=== PATIENT | male | born 1980 | race Caucasian/White ===

== ENCOUNTER 2017-09-10 05:38 | Inpatient (IN) | payer SELFPAY ==
[~2017-09-10] VITALS: Ht 190.5 cm; Wt 74.9 kg
[2017-09-10 05:38] VITALS: BP 141/55
[~2017-09-10 05:38] MED LIST: ACYCLOVIR800 MG PO; DAYPRO600 M1 PO; GLIPIZIDE5 MG PO; HYDROCODONE BIT1 T11 PO; KEFLEX500 MG PO; MEDROL DOSEPAK4 MG PO; METFORMIN500 MG PO; NAPROSYN500 MG PO; ROBAXIN750 MG PO; VICODIN 5/500 505 MG PO; ZANTAC150 MG PO; ZITHROMAX Z PA250 MG PO; ZITHROMAX250 MG PO; ZOFRAN4 MG PO
[2017-09-10 06:28] LABS: BASO # 0.1 10*3/uL (0.0-0.1); BASO % 0.5 % (0.0-1.0); HEMATOCRIT 51.7 % (42.0-52.0); HEMOGLOBIN 17.3 g/dl (14.0-18.0); LYMPH # 1.3 10*3/uL (1.3-4.4); LYMPH % 8.8 % (27.0-41.0); MEAN CORPUSCULAR HGB 34.1 pg (27.0-31.0); MEAN CORPUSCULAR HGB CONC 33.5 g/dl (33.0-37.0); MONO # 0.9 10*3/uL (0.1-1.0); MONO % 6.2 % (3.0-9.0); NEUT # 12.6 10*3/uL (2.3-7.9); NEUT % 83.6 % (47.0-73.0); PLATELET COUNT AUTOMATED 299 10*3/uL (130-400); RED BLOOD COUNT 5.07 10*6/uL (4.50-5.90); RED CELL DISTRI WIDTH 12.2 % (0-14.5)
[2017-09-10 06:37] LABS: ACT PARTIAL THROMBO TIME 32.2 SECONDS (20.8-31.5); INTERNATIONAL NORM RATIO 0.9 (2.0-3.5)
[2017-09-10 06:56] LABS: ALKALINE PHOSPHATASE 70 U/L (45-117); BUN 12 mg/dl (7-24); CHLORIDE 94 mmol/L (98-107); CREATININE 1.31 mg/dL (0.70-1.30); LIPASE 80 U/L (73-393); MAGNESIUM 2.4 mg/dL (1.5-2.1); POTASSIUM 4.4 mmol/L (3.5-5.1); SGOT/AST 29 IU/L (3-35); SGPT/ALT 54 U/L (12-78); SODIUM 131 mmol/L (136-145); TOTAL PROTEIN 9.5 gm/dL (6.4-8.2)
[2017-09-10 06:59] LABS: ETHYL ALCOHOL < 3.0 mg/dl (<3); TROPONIN I < 0.015 ng/ml (<0.045)
--- NOTE | 2017-09-10 07:09 | NUR ---
REPORT FROM RALPH BOOTH AT THIS TIME. PATIENT CURRENTLY LAYING IN BED AT THIS TIME. APPEARS IN NO DISTRESS. WILL CONTINUE TO MONITOR. CALL LIGHT WITHIN REACH.
[2017-09-10 07:30] VITALS: BP 145/81
[2017-09-10 07:50] LABS: BILIRUBIN NEGATIVE (NEGATIVE); BLOOD 1+ (NEGATIVE); CLARITY CLEAR (CLEAR); COLOR YELLOW (YELLOW); GLUCOSE 2+ (NEGATIVE); KETONE 3+ (NEGATIVE); LEUKO ESTERASE NEGATIVE (NEGATIVE); NITRITE NEGATIVE (NEGATIVE); SPECIFIC GRAVITY 1.025 (1.005-1.030); UROBILINOGEN 0.2 E.U./dl (0.2-1.0)
[2017-09-10 07:53] LABS: URINE AMPHETAMINES < 1000 (1000ng/ml); URINE BARBITURATES < 200 (200ng/ml); URINE BENZODIAZEPINES < 200 (200ng/ml); URINE CANNABINOIDS (THC) < 50 (50ng/ml); URINE COCAINE < 300 (300ng/ml); URINE METHADONE < 300 (300ng/ml); URINE OPIATES < 300 (300ng/ml)
[2017-09-10 07:54] LABS: URINE PHENCYCLIDINE < 25 (25ng/ml)
[2017-09-10 07:58] LABS: BACTERIA TRACE; EPITHELIAL CELLS 0-2; MUCOUS 1+; WBC 0-2 wbc/hpf (0-5)
--- NOTE | 2017-09-10 08:06 | NUR ---
REPORT FROM RALPH BOOTH INDICATED TO THIS NURSE THAT PATIENT WAS TO RECEIVE 3 BAGS OF 1000ML OF NORMAL SALINE. PATIENT HAS ONE BAG IN EMAR AT THIS TIME. FIRST BAG HAS FINISHED INFUSING.
--- NOTE | 2017-09-10 08:18 | NUR ---
INSULIN STARTED AT 8 UNITS/HOUR AT THIS TIME. VERIFIFED BY LEOBARDO LOVELACE AND PHARMACY
--- NOTE | 2017-09-10 08:23 | NUR ---
BGM OBTAINED PRIOR TO START OF INSULIN. 339 AT THIS TIME
--- NOTE | 2017-09-10 08:25 | NUR ---
REPORT CALLED TO SEAN BOOTH AT THIS TIME IN [facility].
[2017-09-10 08:53] VITALS: BP 147/90
--- NOTE | 2017-09-10 08:53 | NUR ---
A 37, admitted to [facility], under the services of MARIANGEL Henry DO with a diagnosis of METABOLIC ACIDOSIS. Chief complaint is sick at home. Patient arrived via stretcher from ER. Monitor applied. Initial assessment completed. Vital signs taken and recorded. MARIANGEL HENRY DO notified of admission to the unit. Orders received. See assessment for past medical history, medications and allergies. Patient and/or family oriented to unit. [facility] visitation policy reviewed. Clothing/patient valuable form completed. CHANDU PALACIOS
[2017-09-10] MEDS ORDERED: JARDIANCE10 MG PO (09:22)
[2017-09-10] MEDS ORDERED: ADVIL200 M1 PO (09:23)
--- NOTE | 2017-09-10 10:45 | NUR ---
PT WAS MEDICATED AT 1016 WITH MORPHINE FOR BACK/ABDOMINAL DISCOMFORT. ULTRASOUND OF ABDOMEN HAS BEEN DONE AT THE BEDSIDE.
--- NOTE | 2017-09-10 11:02 | NUR ---
STATES FEELING "SOME" RELIEF FROM EARLIER MORPHINE. 3RD BAG OF WIDE OPEN SALINE ALMOST COMPLETE. THE INSULIN DRIP CONTINUES AT 8 UNITS/HR.
--- NOTE | 2017-09-10 11:49 | NUR ---
INSULIN DRIP DECREASED BY 50% TO 4 UNITS/HR FOR BSBS OF 149.
[2017-09-10 12:00] VITALS: BP 122/64
[2017-09-10 12:31] LABS: BUN 9 mg/dl (7-24); CHLORIDE 106 mmol/L (98-107); CREATININE 0.98 mg/dL (0.70-1.30); POTASSIUM 4.2 mmol/L (3.5-5.1); SODIUM 136 mmol/L (136-145)
--- NOTE | 2017-09-10 12:45 | NUR ---
DR SALVADOR UPDATED ON BMP, BS OF 116, CO2 OF 8 AND INSULIN DRIP AT 4UNITS/HR
--- NOTE | 2017-09-10 13:15 | NUR ---
INSULIN DRIP DECREASED BY 50% TO 2 UNITS/HR FOR BSBS OF 92. DILAUDID 1MG IV FOR RETURNING BACK PAIN. REMAINS NPO EXCEPT FOR ICE CHIPS.
--- NOTE | 2017-09-10 13:22 | NUR ---
DR SALVADOR NOTIFIED OF PT'S BSBS OF 92 AND THAT I HAVE TITRATED THE INSULIN DRIP BY 50% AGAIN TO 2 UNITS/HR.
--- NOTE | 2017-09-10 14:41 | NUR ---
SAYS SOTOID EFFECTIVE. HE'S HUNGRY.
--- NOTE | 2017-09-10 14:53 | NUR ---
IV FLUIDS WERE CHANGED EARLIER TO D5.45NS AT 150/HR. HE HAS BEEN SLEEPING AT LONG INTERVALS. NO DYSRHYTHMIAS OR RESPIRATORY DISTRESS.
[2017-09-10 16:00] VITALS: BP 118/65
[2017-09-10 16:45] LABS: BUN 8 mg/dl (7-24); CHLORIDE 107 mmol/L (98-107); CREATININE 1.03 mg/dL (0.70-1.30); POTASSIUM 4.4 mmol/L (3.5-5.1); SODIUM 136 mmol/L (136-145)
--- NOTE | 2017-09-10 17:06 | NUR ---
DR SALVADOR NOTIFIED THAT REPEAT LABS AVAILABLE IN COMPUTER AND THAT PATIENT IS HUNGRY. HE SAID HE WOULD BE PUTTING IN ORDERS.
[2017-09-10 18:34] LABS: BUN 8 mg/dl (7-24); CHLORIDE 106 mmol/L (98-107); CREATININE 1.06 mg/dL (0.70-1.30); SODIUM 135 mmol/L (136-145)
--- NOTE | 2017-09-10 18:52 | NUR ---
DR SALVADOR NOTIFIED OF REPEAT BMP RESULTS. HE WILL BE ENTERING ORDERS ELECTRONICALLY. PT EATING DINNER AT THIS TIME.
[2017-09-10 20:00] VITALS: BP 108/68
--- NOTE | 2017-09-10 20:16 | NUR ---
DILAUDID GIVEN AT 1954 FOR COMPLAINTS FOR RECURRING BACK PAIN 05/31 WAS EFFECTIVE PER PT. PT ALSO WAS INSTRUCTED TO NOT GET OOB WITHOUT ASSISTANCE AT THE TIME OF MEDICATION ADMINISTRATION. SUPPORTIVE AT BEDSIDE.
--- NOTE | 2017-09-10 21:26 | NUR ---
PT'S STATES THAT PT'S "BLOOD SUGAR MAY BE LOW. HE HAS A HEADACHE AND FEELS LIKE IT'S LOW." BED GLUCOSE CHECKED AT 159.
[2017-09-10 22:43] LABS: BUN 6 mg/dl (7-24); CHLORIDE 105 mmol/L (98-107); CREATININE 0.96 mg/dL (0.70-1.30); SODIUM 137 mmol/L (136-145)
[2017-09-11] VITALS: BP 101/56
--- NOTE | 2017-09-11 00:18 | NUR ---
DISCUSSED GEOVANNA'S BMP RESULTS AND LEVEMIR INSULIN GIVEN THIS PM. DIRECTED TO RECHECK BEDSIDE GLUCOSE AT THIS TIME.
--- NOTE | 2017-09-11 00:39 | NUR ---
TYLENOL GIVEN FOR HEADACHE ORDERED AND PER PT REQUEST.
--- NOTE | 2017-09-11 02:44 | NUR ---
TYLENOL WAS APPARENTLY EFFECTIVE...PT SLEEPING. NO S&S OF HYPOGLYCEMIA NOTED.
[2017-09-11 04:00] VITALS: BP 107/60
[2017-09-11 05:21] LABS: BUN 7 mg/dl (7-24); CHLORIDE 105 mmol/L (98-107); CREATININE 0.93 mg/dL (0.70-1.30); MAGNESIUM 2.3 mg/dL (1.5-2.1); POTASSIUM 3.4 mmol/L (3.5-5.1); SODIUM 136 mmol/L (136-145)
[2017-09-11 05:26] LABS: CHOLESTEROL 225 mg/dL (<200); HDL CHOLESTEROL 52 mg/dl (40-60); LDL CHOLESTEROL 144 mg/dL (9-159); PHOSPHOROUS 1.1 mg/dL (2.5-4.9); TRIGLYCERIDES 146 mg/dl (<150); VLDL CHOLESTEROL 29 mg/dL (6-40)
--- NOTE | 2017-09-11 05:44 | NUR ---
DR GREEN NOTIFIED OF THIS AM'S BMP RESULTS AND ANION GAP CALCULATION. PT REMAINS ASYMPTOMATIC.
[2017-09-11 05:52] LABS: BASO % 0.2 % (0.0-1.0); LYMPH # 1.3 10*3/uL (1.3-4.4); LYMPH % 22.7 % (27.0-41.0); MEAN CORPUSCULAR HGB 33.3 pg (27.0-31.0); MEAN CORPUSCULAR HGB CONC 34.8 g/dl (33.0-37.0); MEAN PLATELET VOLUME 10.9 fl (9.6-12.3); MONO # 0.5 10*3/uL (0.1-1.0); MONO % 8.7 % (3.0-9.0); NEUT # 3.9 10*3/uL (2.3-7.9); NEUT % 68.2 % (47.0-73.0); RED BLOOD COUNT 4.14 10*6/uL (4.50-5.90); RED CELL DISTRI WIDTH 12.4 % (0-14.5); WHITE BLOOD COUNT 5.8 10*3/uL (4.8-10.8)
[2017-09-11 05:58] LABS: HEMATOCRIT 39.7 % (42.0-52.0); HEMOGLOBIN 13.8 g/dl (14.0-18.0); MEAN CELL VOLUME 95.9 fl (80.0-94.0); PLATELET COUNT AUTOMATED 202 10*3/uL (130-400)
--- NOTE | 2017-09-11 07:13 | NUR ---
Shift chart check completed.
[2017-09-11 08:00] VITALS: BP 114/70
[2017-09-11 08:32] LABS: VITAMIN D, 25-HYDROXY 23.1 ng/mL (30-100)
--- NOTE | 2017-09-11 09:57 | NUR ---
PATIENT FINALLY ATE FOOD INSULIN GIVEN AFTER MADE SURE HE ATE.
--- NOTE | 2017-09-11 11:00 | NUR ---
DR STONE AND DR MATT HERE - WILL RESTART INSULIN DRIP AFTER NOON BMP RESULTS CHECKED & GAP VERIFIED.
[2017-09-11 12:00] VITALS: BP 110/73
[2017-09-11 12:40] LABS: BUN 6 mg/dl (7-24); CHLORIDE 104 mmol/L (98-107); CREATININE 1.02 mg/dL (0.70-1.30); POTASSIUM 3.8 mmol/L (3.5-5.1); SODIUM 136 mmol/L (136-145)
--- NOTE | 2017-09-11 13:00 | NUR ---
INSULIN DRIP STARTED AT 2 UNITS/HR VIA LEFT ARM IV SITE. IVF CHANGED TO D5.45NS @ 100cc/hr & KPHOS HUNG PER ORDERS. IV SITE ASYMPTOMATIC TO RIGHT ARM. MEDICATIONS REVIEWED WITH PATIENT. VOIDING STRAW URINE.
[2017-09-11 16:00] VITALS: BP 108/70
[2017-09-11 16:35] LABS: BUN 7 mg/dl (7-24); CHLORIDE 104 mmol/L (98-107); CREATININE 0.84 mg/dL (0.70-1.30); POTASSIUM 3.6 mmol/L (3.5-5.1); SODIUM 135 mmol/L (136-145)
--- NOTE | 2017-09-11 16:48 | NUR ---
DR MATT MADE AWARE OF GAP & INSULIN DRIP LEVEL. OK TO CANCEL 1700 BMP BUT KEEP 2000 & CALL RESULTS.
--- NOTE | 2017-09-11 16:51 | NUR ---
DR MATT CALLED BACK AND NEW ORDERS RECEIVED.
--- NOTE | 2017-09-11 17:08 | NUR ---
NORCO GIVEN FOR C/O BACK PAIN.
--- NOTE | 2017-09-11 17:30 | NUR ---
INSULIN DRIP & IVF STOPPED PER ORDERS.
[2017-09-11 20:00] VITALS: BP 110/72
--- NOTE | 2017-09-11 20:10 | NUR ---
1040 RESTING IN BED WATCHING TV. AT BEDSIDE. DENIES C/O'S PAIN OR DISCOMFORT AT PRESENT. HEP LOCK'S INTACT BILATERAL ARMS. PULSE OX 98% ON RA. NO DISTRESS NOTED.
[2017-09-11 20:27] LABS: BUN 8 mg/dl (7-24); CHLORIDE 104 mmol/L (98-107); CREATININE 0.83 mg/dL (0.70-1.30); POTASSIUM 3.5 mmol/L (3.5-5.1); SODIUM 136 mmol/L (136-145)
[2017-09-12] VITALS: BP 110/72
--- NOTE | 2017-09-12 00:06 | NUR ---
RESTING IN BED WITH EYES CLOSED. APPEARS TO BE SLEEPING. NO DISTRESS NOTED, MONITOR NSR-SB. DR. JACKSON NOTIFIED EARLIER THAT PT GAP IS 9 ON 1999 BMP.
[2017-09-12 04:00] VITALS: BP 110/68
--- NOTE | 2017-09-12 04:16 | NUR ---
REMAINS SLEEPING WITHOUT DISTRESS.
[2017-09-12 04:44] LABS: BASO % 0.6 % (0.0-1.0); EOS # 0.1 10*3/uL (0.0-0.4); EOS % 1.4 % (1.0-4.0); HEMATOCRIT 38.1 % (42.0-52.0); HEMOGLOBIN 13.6 g/dl (14.0-18.0); LYMPH # 2.1 10*3/uL (1.3-4.4); LYMPH % 57.5 % (27.0-41.0); MEAN CELL VOLUME 94.1 fl (80.0-94.0); MEAN CORPUSCULAR HGB 33.6 pg (27.0-31.0); MEAN CORPUSCULAR HGB CONC 35.7 g/dl (33.0-37.0); MEAN PLATELET VOLUME 10.6 fl (9.6-12.3); MONO # 0.3 10*3/uL (0.1-1.0); MONO % 9.5 % (3.0-9.0); NEUT # 1.1 10*3/uL (2.3-7.9); PLATELET COUNT AUTOMATED 176 10*3/uL (130-400); RED BLOOD COUNT 4.05 10*6/uL (4.50-5.90); RED CELL DISTRI WIDTH 12.3 % (0-14.5); WHITE BLOOD COUNT 3.6 10*3/uL (4.8-10.8)
[2017-09-12 05:02] LABS: ALBUMIN 3.3 gm/dl (3.1-4.5); ALKALINE PHOSPHATASE 43 U/L (45-117); BUN 8 mg/dl (7-24); CHLORIDE 106 mmol/L (98-107); CREATININE 0.59 mg/dL (0.70-1.30); PHOSPHOROUS 1.7 mg/dL (2.5-4.9); SGOT/AST 22 IU/L (3-35); SGPT/ALT 37 U/L (12-78); SODIUM 140 mmol/L (136-145); TOTAL PROTEIN 6.2 gm/dL (6.4-8.2)
--- NOTE | 2017-09-12 06:05 | NUR ---
SLEPT WELL THIS SHIFT. REMAINS WITHOUT C/O'S. CONDITION GUARDED.
--- NOTE | 2017-09-12 07:29 | NUR ---
Shift chart check completed.24 HR chart check completed.
[2017-09-12 08:00] VITALS: BP 110/50; BP 112/75
--- NOTE | 2017-09-12 08:22 | NUR ---
ON ASSESSMENT PATIENT IS RESTING COMFORTABLY, ANXIOUS TO GO HOME. HIS K+ 3.0 THIS AM, PRN DOSE OF K-DUR 40MEQ GIVEN.
[2017-09-12] MEDS ORDERED: K-PHOS500 MG PO (10:13)
[2017-09-12] MEDS ORDERED: LEVEMIR100 UNIT/1 SC (10:13)
[2017-09-12] MEDS ORDERED: VITAMIN D31000 UNI1 PO (10:13)
[2017-09-12] MEDS ORDERED: NOVOLOG10 ML IV (10:13)
--- NOTE | 2017-09-12 11:00 | NUR ---
DISCHARGE INSTRUCTIONS TO PATIENT AND HIS . HEP LOCKS X 2 REMOVED. MONITOR REMOVED. PT DISCHARGED, AMBULATORY, ESCORTED BY AIDE TO THE 3RD FLOOR PHARMACY WHERE HE IS TO [facility]VERT[facility] [employer]. PT DISCHARGED IN STABLE CONDITION.
== END 2017-09-12 11:00 | disposition home or self-care (01) | DRG 638 ==
LOC: ED 05:38 → EDHOLD 07:39 → ICCU 08:03
PROVIDERS: Emergency Medicine; Family Medicine; Hospitalist; Internal Medicine; Internal Medicine Nephrology; Student in an Organized Health Care Education/Training Program; ADMIT Internal Medicine
DX: E11.10 Type 2 diabetes mellitus with ketoacidosis without coma (principal); E87.2 Acidosis; N17.9 Acute kidney failure, unspecified; E72.20 Disorder of urea cycle metabolism, unspecified; R65.10 Systemic inflammatory response syndrome (SIRS) of non-infectious origin without acute organ dysfunction; E83.51 Hypocalcemia; R00.0 Tachycardia, unspecified; D75.89 Other specified diseases of blood and blood-forming organs; Z91.19 Patient's noncompliance with other medical treatment and regimen; Z88.0 Allergy status to penicillin; Z79.899 Other long term (current) drug therapy; Z82.49 Family history of ischemic heart disease and other diseases of the circulatory system; Z83.3 Family history of diabetes mellitus; Z82.3 Family history of stroke; E11.65 Type 2 diabetes mellitus with hyperglycemia

== ENCOUNTER → 2017-09-14 | Outpatient (CLI) | payer SELFPAY ==
[~2017-09-14] MED LIST changes: +ADVIL200 M1 PO; +JARDIANCE10 MG PO; +K-PHOS500 MG PO; +LEVEMIR100 UNIT/1 SC; +NOVOLOG10 ML IV; +VITAMIN D31000 UNI1 PO
== END | disposition home or self-care (01) ==
LOC: RESCLI 01:45
DX: E11.65 Type 2 diabetes mellitus with hyperglycemia (principal); E78.5 Hyperlipidemia, unspecified; E55.9 Vitamin D deficiency, unspecified; Z79.4 Long term (current) use of insulin; Z88.0 Allergy status to penicillin

== ENCOUNTER → 2017-12-14 | Outpatient (CLI) | payer SELFPAY | END | disposition home or self-care (01) | LOC: RESCLI 03:55 | DX: E11.65 Type 2 diabetes mellitus with hyperglycemia (principal); E11.41 Type 2 diabetes mellitus with diabetic mononeuropathy; E78.5 Hyperlipidemia, unspecified ==

== ENCOUNTER → 2018-10-21 | Outpatient (CLI) | payer SELFPAY ==
--- NOTE | ~2018-10-21 | EKG ---
[place], [place] ELECTROCARDIOGRAM REPORT NAME: STORMY JOHNSTON UNIT #: [id number] ROOM: DOCTOR: EPIPHANY DRAFT REPORT BIRTHDATE: [birth year] [facility] Test Date: 2018-10-21 Test Time: 16:18:22 Pat Name: STORMY JOHNSTON Department: Room: Gender: [employer] Former Supervisor: pOal Viveros : 1980 Requested By: BEENA BACON Order Number: [id number] Reading MD: Cash Tomlin MD Measurements Intervals [place] Rate: 67 P: 61 NC: 131 QRS: 35 QRSD: 96 T: 38 QT: 380 QTc: 401 Interpretive Statements Sinus rhythm Probable left atrial enlargement RSR' in V1 or V2, probably normal variant Left ventricular hypertrophy No previous ECG available for comparison Electronically Signed On 10-21-2018 19:52:48 PST by Cash Tomlin MD CM:EKGRPT:ELECTROCARDIOGRAM REPORT 51 BEENA VERGARA DRAFT REPORT BEENA BCAON MD
[2018-10-21 16:54] LABS: ALBUMIN 4.4 gm/dl (3.1-4.5); ALKALINE PHOSPHATASE 54 U/L (45-117); BUN 14 mg/dl (7-24); CHLORIDE 95 mmol/L (98-107); CHOLESTEROL 240 mg/dL (<200); CREATININE 0.86 mg/dL (0.70-1.30); HDL CHOLESTEROL 80 mg/dl (40-60); LDL CHOLESTEROL 139 mg/dL (9-159); POTASSIUM 3.9 mmol/L (3.5-5.1); SGOT/AST 13 IU/L (3-35); SGPT/ALT 27 U/L (12-78); SODIUM 133 mmol/L (136-145); TOTAL PROTEIN 8.2 gm/dL (6.4-8.2); TRIGLYCERIDES 104 mg/dl (<150); VLDL CHOLESTEROL 21 mg/dL (6-40)
== END | disposition home or self-care (01) ==
LOC: RESCLI 03:29
PROVIDERS: Internal Medicine
DX: I10 Essential (primary) hypertension (principal); F41.9 Anxiety disorder, unspecified; E11.9 Type 2 diabetes mellitus without complications; R07.9 Chest pain, unspecified; F10.10 Alcohol abuse, uncomplicated; Z79.899 Other long term (current) drug therapy; Z79.82 Long term (current) use of aspirin; Z79.4 Long term (current) use of insulin; Z88.8 Allergy status to other drugs, medicaments and biological substances

== ENCOUNTER → 2019-03-10 | Outpatient (CLI) | payer SELFPAY ==
[2019-03-10 08:09] LABS: BASO # 0.1 10*3/uL (0.0-0.1); BASO % 1.4 % (0.0-1.0); EOS # 0.1 10*3/uL (0.0-0.4); EOS % 2.9 % (1.0-4.0); HEMATOCRIT 43.9 % (42.0-52.0); HEMOGLOBIN 15.1 g/dl (14.0-18.0); LYMPH # 1.6 10*3/uL (1.3-4.4); LYMPH % 45.5 % (27.0-41.0); MEAN CELL VOLUME 96.7 fl (80.0-94.0); MEAN CORPUSCULAR HGB 33.3 pg (27.0-31.0); MEAN CORPUSCULAR HGB CONC 34.4 g/dl (33.0-37.0); MEAN PLATELET VOLUME 10.5 fl (9.6-12.3); MONO # 0.4 10*3/uL (0.1-1.0); MONO % 10.1 % (3.0-9.0); NEUT # 1.4 10*3/uL (2.3-7.9); NEUT % 40.1 % (47.0-73.0); PLATELET COUNT AUTOMATED 270 10*3/uL (130-400); RED BLOOD COUNT 4.54 10*6/uL (4.50-5.90); RED CELL DISTRI WIDTH 11.7 % (0-14.5); WHITE BLOOD COUNT 3.5 10*3/uL (4.8-10.8)
[2019-03-10 08:37] LABS: ALBUMIN 3.8 gm/dl (3.1-4.5); ALKALINE PHOSPHATASE 50 U/L (45-117); BUN 10 mg/dl (7-24); CHLORIDE 101 mmol/L (98-107); CHOLESTEROL 222 mg/dL (<200); CREATININE 0.73 mg/dL (0.70-1.30); HDL CHOLESTEROL 62 mg/dl (40-60); LDL CHOLESTEROL 133 mg/dL (9-159); POTASSIUM 4.1 mmol/L (3.5-5.1); SGOT/AST 20 IU/L (3-35); SGPT/ALT 29 U/L (12-78); SODIUM 136 mmol/L (136-145); TOTAL PROTEIN 7.4 gm/dL (6.4-8.2); TRIGLYCERIDES 133 mg/dl (<150); VLDL CHOLESTEROL 27 mg/dL (6-40)
[2019-03-10 09:56] LABS: VITAMIN D, 25-HYDROXY 28.5 ng/mL (30-100)
== END | disposition home or self-care (01) ==
LOC: LAB 07:40
PROVIDERS: Internal Medicine
DX: E11.65 Type 2 diabetes mellitus with hyperglycemia (principal)

== ENCOUNTER → 2019-07-21 | Outpatient (CLI) | payer SELFPAY | END | disposition home or self-care (01) | LOC: RESCLI 15:19 | DX: E11.65 Type 2 diabetes mellitus with hyperglycemia (principal); F41.9 Anxiety disorder, unspecified; I10 Essential (primary) hypertension; G62.9 Polyneuropathy, unspecified; F10.10 Alcohol abuse, uncomplicated; Z91.14 Patient's other noncompliance with medication regimen; Z79.899 Other long term (current) drug therapy ==

== ENCOUNTER → 2019-08-11 | Outpatient (CLI) | payer SELFPAY | END | disposition home or self-care (01) | LOC: LAB 07:53 | DX: E11.65 Type 2 diabetes mellitus with hyperglycemia (principal); E11.9 Type 2 diabetes mellitus without complications; I10 Essential (primary) hypertension; F41.9 Anxiety disorder, unspecified ==

== ENCOUNTER → 2019-08-25 | Outpatient (CLI) | payer SELFPAY | END | disposition home or self-care (01) | LOC: RESCLI 00:32 | DX: I10 Essential (primary) hypertension (principal); E11.65 Type 2 diabetes mellitus with hyperglycemia; Z79.899 Other long term (current) drug therapy ==

== ENCOUNTER 2019-11-27 19:30 | Inpatient (IN) | payer SELFPAY ==
[~2019-11-27] VITALS: Ht 185.4 cm; Wt 77.6 kg
[2019-11-27 19:32] VITALS: BP 118/81
[2019-11-27 19:48] LABS: BASO # 0.1 10*3/uL (0.0-0.1); BASO % 1.1 % (0.0-1.0); EOS # 0.2 10*3/uL (0.0-0.4); EOS % 2.5 % (1.0-4.0); HEMATOCRIT 44.8 % (42.0-52.0); HEMOGLOBIN 15.4 g/dl (14.0-18.0); LYMPH # 3.3 10*3/uL (1.3-4.4); LYMPH % 42.4 % (27.0-41.0); MEAN CELL VOLUME 98.2 fl (80.0-94.0); MEAN CORPUSCULAR HGB 33.8 pg (27.0-31.0); MEAN CORPUSCULAR HGB CONC 34.4 g/dl (33.0-37.0); MEAN PLATELET VOLUME 10.3 fl (9.6-12.3); MONO # 0.5 10*3/uL (0.1-1.0); MONO % 5.8 % (3.0-9.0); NEUT # 3.8 10*3/uL (2.3-7.9); NEUT % 48.1 % (47.0-73.0); PLATELET COUNT AUTOMATED 299 10*3/uL (130-400); RED BLOOD COUNT 4.56 10*6/uL (4.50-5.90); WHITE BLOOD COUNT 7.9 10*3/uL (4.8-10.8)
[2019-11-27 20:03] LABS: ACT PARTIAL THROMBO TIME 25.3 SECONDS (20.0-32.1); INTERNATIONAL NORM RATIO 0.8 (2.0-3.5)
[2019-11-27 20:14] VITALS: BP 122/74
--- NOTE | 2019-11-27 20:14 | NUR ---
PT RESTING ON CART DENIES PAIN AT THIS TIME. MONITOR SHOWING SINUS RHYTHM, AT BEDSIDE. FIORDALIZA COX RN.
[2019-11-27 20:23] LABS: ALBUMIN 4.2 gm/dl (3.1-4.5); ALKALINE PHOSPHATASE 56 U/L (45-117); BUN 10 mg/dl (7-24); CHLORIDE 100 mmol/L (98-107); CREATININE 0.83 mg/dL (0.70-1.30); POTASSIUM 3.5 mmol/L (3.5-5.1); SGOT/AST 24 IU/L (3-35); SGPT/ALT 45 U/L (12-78); SODIUM 137 mmol/L (136-145)
[2019-11-27 20:32] LABS: TROPONIN I < 0.015 ng/ml (<0.045)
[2019-11-27 21:41] VITALS: BP 105/61
--- NOTE | 2019-11-27 22:12 | NUR ---
PT REMAINS PAIN FREE. FIORDALIZA COX RN.
[2019-11-27 22:13] VITALS: BP 107/65
[2019-11-27 22:40] VITALS: BP 132/88
--- NOTE | 2019-11-27 22:40 | NUR ---
A 39, admitted to , under the services of SASHA Velazquez DO with a diagnosis of chest pain. Chief complaint is CHEST PAIN. Patient arrived via bed from ER. Monitor applied. Initial assessment completed. Vital signs taken and recorded. SASHA VELAZQUEZ DO notified of admission to the unit. Orders received. See assessment for past medical history, medications and allergies. Patient and/or family oriented to unit. [facility] visitation policy reviewed. Clothing/patient valuable form completed. GOYO CACERES
[2019-11-27] MEDS ORDERED: LANTUS SOL100 UNIT/1 SQ (23:01)
[2019-11-27] MEDS ORDERED: MULTIVITAMINS1 EAC5 PO (23:02)
[2019-11-27] MEDS ORDERED: INVOKANA300 M1 PO (23:05)
[2019-11-27] MEDS ORDERED: LISINOPRIL10 M1 PO (23:05)
[2019-11-27] MEDS ORDERED: NOVOLOG10 ML SC (23:06)
--- NOTE | 2019-11-27 23:06 | NUR ---
MED REC UPDATED
[2019-11-28] VITALS: BP 114/60
--- NOTE | 2019-11-28 06:22 | NUR ---
ANSWERING SERVICE CALLED AND NOTIFIED OF CONSULT
[2019-11-28 06:56] LABS: BASO % 0.8 % (0.0-1.0); EOS # 0.2 10*3/uL (0.0-0.4); EOS % 4.2 % (1.0-4.0); HEMATOCRIT 42.1 % (42.0-52.0); HEMOGLOBIN 14.5 g/dl (14.0-18.0); LYMPH # 2.2 10*3/uL (1.3-4.4); LYMPH % 46.1 % (27.0-41.0); MEAN CELL VOLUME 98.4 fl (80.0-94.0); MEAN CORPUSCULAR HGB 33.9 pg (27.0-31.0); MEAN CORPUSCULAR HGB CONC 34.4 g/dl (33.0-37.0); MEAN PLATELET VOLUME 10.5 fl (9.6-12.3); MONO # 0.5 10*3/uL (0.1-1.0); MONO % 10.4 % (3.0-9.0); NEUT # 1.8 10*3/uL (2.3-7.9); NEUT % 38.3 % (47.0-73.0); PLATELET COUNT AUTOMATED 247 10*3/uL (130-400); RED BLOOD COUNT 4.28 10*6/uL (4.50-5.90); RED CELL DISTRI WIDTH 12.2 % (0-14.5); WHITE BLOOD COUNT 4.7 10*3/uL (4.8-10.8)
[2019-11-28 07:09] LABS: ALBUMIN 3.6 gm/dl (3.1-4.5); ALKALINE PHOSPHATASE 42 U/L (45-117); BUN 13 mg/dl (7-24); CHLORIDE 103 mmol/L (98-107); CHOLESTEROL 194 mg/dL (<200); CREATININE 0.57 mg/dL (0.70-1.30); HDL CHOLESTEROL 67 mg/dl (40-60); LDL CHOLESTEROL 114 mg/dL (9-159); PHOSPHOROUS 4.4 mg/dL (2.5-4.9); POTASSIUM 3.8 mmol/L (3.5-5.1); SGOT/AST 17 IU/L (3-35); SGPT/ALT 37 U/L (12-78); SODIUM 138 mmol/L (136-145); TOTAL PROTEIN 6.7 gm/dL (6.4-8.2); TRIGLYCERIDES 63 mg/dl (<150); VLDL CHOLESTEROL 13 mg/dL (6-40)
[2019-11-28 08:00] VITALS: BP 108/64
--- NOTE | 2019-11-28 09:09 | NUR ---
PT OFF FLOOR VIA WHEELCHAIR TO [facility] FOR STRESS TEST WITH DR PRICE.
--- NOTE | 2019-11-28 09:50 | NUR ---
INFORMED CONSENT OBTAINED FOR EXERCISE CARDIOLITE STRESS TEST WITH DR. PRICE. RESTING EKG NSR WITH A SUPINE HR OF 66 WITH BP OF 100/70 AND HR OF 94 WITH BP OF 94/70 IN STANDING POSITION. PT COMPLETED 8:00 OF A VALERIA PROTOCOL WITH COMPLETION OF 2:00 OF STAGE III AT 3.4 MPH AND 14% GRADE. REACHED A PEAK HR OF 167 WHICH IS 93% OF PREDICTED MAX WITH A PEAK BP OF 142/86. TEST TERMINATED BECAUSE OF PHYSICIAN DISCRETION. HAD NO CHEST PAIN OR ANY EKG CHANGES. HAS AN AVERAGE EXERCISE TOLERANCE. LAST RECOVERY HR OF 116 WITH BP OF 110/78. TO NUCLEAR MEDICINE IN STABLE CONDITION FOR SCANNING.
[2019-11-28 12:00] VITALS: BP 100/68
--- NOTE | 2019-11-28 12:53 | NUR ---
Director Of Retail Marketing in to talk to patient. Patient states lives at HOME with . There are 5 steps in the home. Physician: JOVANNY TOURE Pharmacy: [facility] health services: NONE Patient's level of ADLs: INDEPENDENT Patient has working utilities: YES DME: NONE Follow-up physician's appointment after d/c: WILL BE MADE BY HOSPITALIST NURSE DIRECTOR ON DISCHARGE Does patient want to access PORTAL?: NO Discharge plan PT LIVES AT HOME WITH AND IS INDEPENDENT IN HER CARE. DENIES HE WILL HAVE ANY NEEDS ON DISCHARGE. WILL RETURN HOME WHEN MEDICALLY STABLE. WILL HAVE A RIDE HOME.. HEIKE DRUMMOND
[2019-11-28 16:00] VITALS: BP 119/76
--- NOTE | 2019-11-28 17:07 | NUR ---
Discharge instructions reviewed with patient/family. Patient receptive and verbalizes understanding. Follow-up care arranged. Written instructions given to patient/family. TEDDY SPEAR
== END 2019-11-28 17:07 | disposition home or self-care (01) | DRG 313 ==
LOC: ED 19:30 → 5E 21:49 → EDHOLD 21:49 → 5E 22:16
PROVIDERS: Emergency Medicine; Student in an Organized Health Care Education/Training Program; ADMIT Internal Medicine
PROC: 3E073KZ Introduction of Other Diagnostic Substance into Coronary Artery, Percutaneous Approach (ICD-10-PCS; principal; 2019-11-28)
PROC: 4A02XM4 Measurement of Cardiac Total Activity, External Approach (ICD-10-PCS; principal; 2019-11-28)
DX: R07.89 Other chest pain (principal); E83.41 Hypermagnesemia; R00.0 Tachycardia, unspecified; R06.82 Tachypnea, not elsewhere classified; F10.10 Alcohol abuse, uncomplicated; I10 Essential (primary) hypertension; E11.65 Type 2 diabetes mellitus with hyperglycemia; Z79.4 Long term (current) use of insulin; Z98.52 Vasectomy status; Z82.5 Family history of asthma and other chronic lower respiratory diseases; Z80.8 Family history of malignant neoplasm of other organs or systems; Z82.3 Family history of stroke; Z82.49 Family history of ischemic heart disease and other diseases of the circulatory system; Z83.3 Family history of diabetes mellitus; Z88.0 Allergy status to penicillin; Z79.899 Other long term (current) drug therapy; Z71.41 Alcohol abuse counseling and surveillance of alcoholic

== ENCOUNTER → 2020-08-09 | Outpatient (CLI) | payer SELFPAY ==
[~2020-08-09] MED LIST changes: +INVOKANA300 M1 PO; +LANTUS SOL100 UNIT/1 SQ; +LISINOPRIL10 M1 PO; +MULTIVITAMINS1 EAC5 PO; +NOVOLOG10 ML SC
[2020-08-10 10:11] LABS: CREATININE,URINE 27.1 mg/dL (Not Estab.); MICRO ALBUMIN/CRE RATIO <11 (0-29)
== END | disposition home or self-care (01) ==
LOC: RESCLI 01:05
PROVIDERS: Internal Medicine; ATTEND Internal Medicine
DX: E11.65 Type 2 diabetes mellitus with hyperglycemia (principal); I10 Essential (primary) hypertension; G62.9 Polyneuropathy, unspecified; M10.9 Gout, unspecified; M77.9 Enthesopathy, unspecified

== ENCOUNTER → 2021-07-22 | Outpatient (CLI) | payer SELFPAY | END | disposition home or self-care (01) | LOC: RESCLI 01:18 | PROVIDERS: ATTEND Internal Medicine | DX: G62.9 Polyneuropathy, unspecified (principal); I10 Essential (primary) hypertension; E11.65 Type 2 diabetes mellitus with hyperglycemia; F10.20 Alcohol dependence, uncomplicated; Z79.4 Long term (current) use of insulin; Z79.899 Other long term (current) drug therapy; Z88.0 Allergy status to penicillin ==

== ENCOUNTER → 2022-06-25 | Outpatient (CLI) | payer SELFPAY | END | disposition home or self-care (01) | LOC: RESCLI 15:53 | PROVIDERS: ATTEND Internal Medicine | DX: E11.65 Type 2 diabetes mellitus with hyperglycemia (principal); I10 Essential (primary) hypertension; Z88.0 Allergy status to penicillin; Z79.899 Other long term (current) drug therapy ==

== ENCOUNTER 2023-01-20 06:37 | Emergency (ER) | payer SELFPAY ==
[~2023-01-20] VITALS: Ht 185.4 cm; Wt 81.6 kg
[2023-01-20 06:47] VITALS: BP 146/87
[2023-01-20] MEDS ORDERED: CYCLOBENZAPRINE5 M3 PO (08:11)
[2023-01-20] MEDS ORDERED: PREDNISONE50 MG PO (08:11)
== END 2023-01-20 08:13 | disposition home or self-care (01) ==
LOC: ED 06:37
DX: M54.50 Low back pain, unspecified (principal); E11.9 Type 2 diabetes mellitus without complications; I10 Essential (primary) hypertension; Z88.0 Allergy status to penicillin; Z98.890 Other specified postprocedural states; F10.20 Alcohol dependence, uncomplicated

== ENCOUNTER → 2023-09-29 | Outpatient (CLI) | payer OTHER ==
[~2023-09-29] MED LIST changes: +CYCLOBENZAPRINE5 M3 PO; +PREDNISONE50 MG PO
[2023-09-29 14:54] LABS: BASO % 0.7 % (0.0-1.0); EOS # 0.1 10*3/uL (0.0-0.4); EOS % 1.1 % (1.0-4.0); HEMATOCRIT 45.8 % (42.0-52.0); LYMPH # 2.2 10*3/uL (1.3-4.4); LYMPH % 39.7 % (27.0-41.0); MEAN CELL VOLUME 101.6 fl (80.0-94.0); MEAN CORPUSCULAR HGB 33.9 pg (27.0-31.0); MEAN CORPUSCULAR HGB CONC 33.4 g/dl (33.0-37.0); MEAN PLATELET VOLUME 9.8 fl (9.6-12.3); MONO # 0.6 10*3/uL (0.1-1.0); MONO % 10.5 % (3.0-9.0); NEUT # 2.6 10*3/uL (2.3-7.9); NEUT % 47.8 % (47.0-73.0); PLATELET COUNT AUTOMATED 245 10*3/uL (130-400); RED BLOOD COUNT 4.51 10*6/uL (4.50-5.90); WHITE BLOOD COUNT 5.4 10*3/uL (4.8-10.8)
[2023-09-29 15:25] LABS: ALKALINE PHOSPHATASE 60 U/L (46-116); BUN 10 mg/dl (9-23); CHLORIDE 100 mmol/L (98-107); LIPASE 28 U/L (12-53); POTASSIUM 4.4 mmol/L (3.4-5.1); SGPT/ALT 26 U/L (5-49); TOTAL PROTEIN 7.4 gm/dL (6.0-8.0)
== END | disposition home or self-care (01) ==
LOC: LAB 14:38
PROVIDERS: ATTEND Nurse Practitioner Family
DX: R19.7 Diarrhea, unspecified (principal); R11.10 Vomiting, unspecified; F41.9 Anxiety disorder, unspecified

== ENCOUNTER → 2023-09-30 | Outpatient (CLI) | payer OTHER | END | disposition home or self-care (01) | LOC: RAD 09:27 | PROVIDERS: ATTEND Nurse Practitioner Family | DX: R11.10 Vomiting, unspecified (principal) ==

== ENCOUNTER 2023-12-11 06:35 | Inpatient (IN) | payer OTHER ==
[~2023-12-11] VITALS: Ht 185.4 cm; Wt 78.7 kg
[2023-12-11] VITALS (7 sets, daily range): BP systolic 93–147; BP diastolic 53–86
[2023-12-11] MEDS ORDERED: LIPITOR20 MG PO (07:21)
[2023-12-11] MEDS ORDERED: FLONASE ALLERG9.9 ML NAS (07:22)
[2023-12-11] MEDS ORDERED: EFFEXOR XR37.5 M1 PO (07:22)
[2023-12-11 07:24] LABS: HEMATOCRIT 49.8 % (42.0-52.0); MEAN CELL VOLUME 106.4 fl (80.0-94.0); MEAN CORPUSCULAR HGB CONC 31.9 g/dl (33.0-37.0); MEAN PLATELET VOLUME 10.1 fl (9.6-12.3); PLATELET COUNT AUTOMATED 588 10*3/uL (130-400); RED BLOOD COUNT 4.68 10*6/uL (4.50-5.90); RED CELL DISTRI WIDTH 11.9 % (0-14.5); WHITE BLOOD COUNT 22.8 10*3/uL (4.8-10.8)
[2023-12-11 07:27] LABS: MANUAL DIFF REFLEX YES
[2023-12-11 07:37] LABS: ACT PARTIAL THROMBO TIME 32.9 SECONDS (20.0-32.1)
[2023-12-11 07:42] LABS: ALKALINE PHOSPHATASE 99 U/L (46-116); BUN 18 mg/dl (9-23); CHLORIDE 101 mmol/L (98-107); LIPASE 32 U/L (12-53); POTASSIUM 5.3 mmol/L (3.4-5.1); SGPT/ALT 10 U/L (5-49); TOTAL PROTEIN 8.2 gm/dL (6.0-8.0)
[2023-12-11 07:43] LABS: POLYCHROMASIA SLIGHT; TOTAL CELLS COUNTED 100 #CELLS; TOXIC GRANULATION SLIGHT
[2023-12-11 07:44] LABS: BURR CELLS FEW; PLATELET SUFFICIENCY HIGH (NORMAL)
[2023-12-11 08:11] LABS: VENOUS PH 6.877 (7.37-7.45)
[2023-12-11 08:42] LABS: BILIRUBIN Negative (Negative); BLOOD 1+ (Negative); CLARITY Clear (Clear); COLOR Yellow (Yellow); GLUCOSE 3+ (Negative); KETONE 4+ (Negative); LEUKO ESTERASE Negative (Negative); NITRITE Negative (Negative); SPECIFIC GRAVITY 1.025 (1.001-1.030); UROBILINOGEN 0.2 E.U./dl (0.0-1.0)
[2023-12-11 09:06] LABS: BACTERIA 2+; MUCOUS 2+; WBC 0-2 wbc/hpf (0-5)
[2023-12-11 14:22] LABS: BUN 18 mg/dl (9-23); CHLORIDE 107 mmol/L (98-107); POTASSIUM 4.5 mmol/L (3.4-5.1)
[2023-12-11 18:28] LABS: BUN 14 mg/dl (9-23); CHLORIDE 109 mmol/L (98-107); POTASSIUM 3.8 mmol/L (3.4-5.1)
[2023-12-11 22:26] LABS: BUN 15 mg/dl (9-23); CHLORIDE 109 mmol/L (98-107); POTASSIUM 3.6 mmol/L (3.4-5.1)
[2023-12-12] VITALS: BP 107/66
[2023-12-12 02:27] LABS: BUN 13 mg/dl (9-23); CHLORIDE 109 mmol/L (98-107); POTASSIUM 3.2 mmol/L (3.4-5.1)
[2023-12-12 04:00] VITALS: BP 92/59
[2023-12-12 06:27] LABS: EOS % 0.1 % (1.0-4.0); HEMATOCRIT 34.1 % (42.0-52.0); LYMPH # 1.3 10*3/uL (1.3-4.4); LYMPH % 18.2 % (27.0-41.0); MEAN CORPUSCULAR HGB 34.1 pg (27.0-31.0); MEAN CORPUSCULAR HGB CONC 35.2 g/dl (33.0-37.0); MEAN PLATELET VOLUME 9.4 fl (9.6-12.3); MONO # 0.6 10*3/uL (0.1-1.0); MONO % 8.6 % (3.0-9.0); NEUT # 5.4 10*3/uL (2.3-7.9); NEUT % 72.7 % (47.0-73.0); RED BLOOD COUNT 3.52 10*6/uL (4.50-5.90); RED CELL DISTRI WIDTH 12.1 % (0-14.5); WHITE BLOOD COUNT 7.4 10*3/uL (4.8-10.8)
[2023-12-12 06:28] LABS: MEAN CELL VOLUME 96.9 fl (80.0-94.0)
[2023-12-12 06:29] LABS: PLATELET COUNT AUTOMATED 351 10*3/uL (130-400)
[2023-12-12 06:30] LABS: ACT PARTIAL THROMBO TIME 30.1 SECONDS (20.0-32.1)
[2023-12-12 07:12] LABS: ALKALINE PHOSPHATASE 59 U/L (46-116); BUN 10 mg/dl (9-23); CHLORIDE 110 mmol/L (98-107); CHOLESTEROL 91 mg/dL (<200); LDL CHOLESTEROL 54 mg/dL (9-159); POTASSIUM 3.2 mmol/L (3.4-5.1); TOTAL PROTEIN 5.4 gm/dL (6.0-8.0); TRIGLYCERIDES 48 mg/dl (<150)
[2023-12-12 07:13] LABS: SGPT/ALT < 7 U/L (5-49)
[2023-12-12 08:00] VITALS: BP 102/63
[2023-12-12 10:42] LABS: BUN 10 mg/dl (9-23); CHLORIDE 109 mmol/L (98-107); POTASSIUM 3.1 mmol/L (3.4-5.1)
[2023-12-12 12:00] VITALS: BP 101/63
[2023-12-12 16:00] VITALS: BP 109/73
[2023-12-12 20:00] VITALS: BP 122/83
[2023-12-13] VITALS: BP 107/63
[2023-12-13 04:00] VITALS: BP 111/66
[2023-12-13 05:43] LABS: BUN 9 mg/dl (9-23); CHLORIDE 111 mmol/L (98-107); POTASSIUM 3.2 mmol/L (3.4-5.1)
[2023-12-13 06:03] LABS: BASO % 0.4 % (0.0-1.0); EOS % 0.4 % (1.0-4.0); LYMPH # 1.7 10*3/uL (1.3-4.4); MEAN CELL VOLUME 97.8 fl (80.0-94.0); MEAN CORPUSCULAR HGB 33.5 pg (27.0-31.0); MEAN CORPUSCULAR HGB CONC 34.3 g/dl (33.0-37.0); MEAN PLATELET VOLUME 10.4 fl (9.6-12.3); MONO # 0.6 10*3/uL (0.1-1.0); MONO % 11.6 % (3.0-9.0); NEUT % 56.4 % (47.0-73.0); PLATELET COUNT AUTOMATED 333 10*3/uL (130-400); RED BLOOD COUNT 3.58 10*6/uL (4.50-5.90); WHITE BLOOD COUNT 5.3 10*3/uL (4.8-10.8)
[2023-12-13 08:00] VITALS: BP 114/83
[2023-12-13] MEDS ORDERED: ONDANSETRON HYDR4 M1 PO (09:47)
[2023-12-13 12:00] VITALS: BP 118/79
== END 2023-12-13 12:20 | disposition home or self-care (01) | DRG 871 ==
LOC: ED 06:35 → EDHOLD 08:59 → ICCU 08:59
PROVIDERS: Emergency Medicine; Internal Medicine; Occupational Therapist; Student in an Organized Health Care Education/Training Program; ADMIT Family Medicine; ATTEND Family Medicine
DX: A41.9 Sepsis, unspecified organism (principal); E11.10 Type 2 diabetes mellitus with ketoacidosis without coma; N17.0 Acute kidney failure with tubular necrosis; E87.1 Hypo-osmolality and hyponatremia; R65.20 Severe sepsis without septic shock; E87.5 Hyperkalemia; D75.839 Thrombocytosis, unspecified; K20.90 Esophagitis, unspecified without bleeding; E83.41 Hypermagnesemia; M54.50 Low back pain, unspecified; G89.29 Other chronic pain; Z88.0 Allergy status to penicillin; Z98.52 Vasectomy status; Z79.4 Long term (current) use of insulin; Z82.3 Family history of stroke; Z83.6 Family history of other diseases of the respiratory system; Z82.49 Family history of ischemic heart disease and other diseases of the circulatory system

== ENCOUNTER → 2023-12-27 | Outpatient (CLI) | payer OTHER ==
[~2023-12-27] MED LIST changes: +EFFEXOR XR37.5 M1 PO; +FLONASE ALLERG9.9 ML NAS; +LIPITOR20 MG PO; +ONDANSETRON HYDR4 M1 PO
== END | disposition home or self-care (01) ==
LOC: RAD 15:07
PROVIDERS: ATTEND Nurse Practitioner Family
DX: R05.1 Acute cough (principal); E11.9 Type 2 diabetes mellitus without complications

== ENCOUNTER → 2024-04-21 | Outpatient (CLI) | payer OTHER ==
[2024-04-21 17:31] LABS: URINE CREATININE RANDOM 95.7 mg/dL
== END | disposition home or self-care (01) ==
LOC: LAB 16:20
PROVIDERS: ATTEND Nurse Practitioner Family
DX: E11.65 Type 2 diabetes mellitus with hyperglycemia (principal)

== ENCOUNTER 2025-04-10 09:14 | Inpatient (IN) | payer OTHER ==
[~2025-04-10] VITALS: Ht 187.9 cm; Wt 71.7 kg
[2025-04-10 09:20] VITALS: BP 133/77
[2025-04-10] MEDS ORDERED: HYDROXYZINE HCL25 MG PO (09:22)
[2025-04-10] MEDS ORDERED: JARDIANCE25 MG PO (09:22)
[2025-04-10] MEDS ORDERED: NAPROXEN500 MG PO (09:22)
[2025-04-10] MEDS ORDERED: VRAYLAR1.5 MG PO (09:23)
[2025-04-10] MEDS ORDERED: Ondansetron Hydrochloride 4 MG/2 ML VIAL IV ONE (09:30)
[2025-04-10] MEDS ORDERED: SODIUM CHLORIDE 0.9% 1,000 ML IV ONE (09:30)
[2025-04-10] MEDS ORDERED: MORPHINE Sulfate 2 MG/ML SYR IV ONE (09:30)
[2025-04-10] MEDS ORDERED: FAMOTIDINE 50 ML IV ONE (09:30)
[2025-04-10 09:40] LABS: HEMATOCRIT 49.6 % (42.0-52.0); MEAN CELL VOLUME 105.8 fl (80.0-94.0); MEAN CORPUSCULAR HGB 33.7 pg (27.0-31.0); MEAN CORPUSCULAR HGB CONC 31.9 g/dl (33.0-37.0); PLATELET COUNT AUTOMATED 313 10*3/uL (130-400); RED BLOOD COUNT 4.69 10*6/uL (4.50-5.90); RED CELL DISTRI WIDTH 11.9 % (0-14.5); WHITE BLOOD COUNT 9.3 10*3/uL (4.8-10.8)
[2025-04-10 10:00] LABS: MANUAL DIFF REFLEX YES
[2025-04-10 10:04] LABS: BASOPHILS 1 % (0-1); TOTAL CELLS COUNTED 100 #CELLS
[2025-04-10 10:09] LABS: PLATELET SUFFICIENCY NORMAL (NORMAL)
[2025-04-10 10:10] LABS: BUN 18 mg/dl (9-23); CHLORIDE 100 mmol/L (98-107); POTASSIUM 4.8 mmol/L (3.4-5.1)
[2025-04-10 10:57] LABS: VENOUS BLOOD GAS O2 SAT 85.6 % (60.0-85.0)
[2025-04-10] MEDS ORDERED: INSULIN REGULAR IN 0.9 % NACL 100 ML IV ONE (11:15)
[2025-04-10] MEDS ORDERED: DEXTROSE 5% SALINE 0.9% 1,000 ML IV SCH ×2 (11:15→14:35)
[2025-04-10] MEDS ORDERED: BISACODYL 5 MG TAB PO PRN (11:45)
[2025-04-10] MEDS ORDERED: BISACODYL 10 MG SUPP R PRN (11:45)
[2025-04-10] MEDS ORDERED: Ondansetron Hydrochloride 4 MG/2 ML VIAL IV PRN (11:45)
[2025-04-10] MEDS ORDERED: Magnesium Hydroxide 30 ML UDC PO PRN (11:45)
[2025-04-10] MEDS ORDERED: POTASSIUM CHLORIDE 20 MEQ TAB PO PRN (11:55)
[2025-04-10] MEDS ORDERED: INSULIN REGULAR IN 0.9 % NACL 100 ML IV SCH (11:55)
[2025-04-10] MEDS ORDERED: POTASSIUM CHLORIDE 20 MEQ/100 ML BAG IV PRN (11:55)
[2025-04-10] MEDS ORDERED: DEXTROSE 5% SALINE 0.45% 1,000 ML IV SCH (12:00)
[2025-04-10 13:15] LABS: BUN 15 mg/dl (9-23); CHLORIDE 102 mmol/L (98-107)
[2025-04-10 15:57] VITALS: BP 119/74
[2025-04-10 16:54] LABS: BUN 11 mg/dl (9-23); CHLORIDE 104 mmol/L (98-107); POTASSIUM 4.8 mmol/L (3.4-5.1)
[2025-04-10 17:00] VITALS: BP 114/74
[2025-04-10 17:40] LABS: ABG O2 SATURATION 98.2 % (94.0-98.0)
[2025-04-10 17:45] LABS: ABG BASE EXCESS -16.3 mmol/L (-2.0-3.0); ARTERIAL BLOOD GAS PH 7.229 (7.350-7.450)
[2025-04-10] MEDS ORDERED: PROZAC20 MG PO (18:36)
[2025-04-10 20:00] VITALS: BP 111/70
[2025-04-10 20:19] LABS: BUN 14 mg/dl (9-23); CHLORIDE 107 mmol/L (98-107); POTASSIUM 3.9 mmol/L (3.4-5.1)
[2025-04-10 22:06] LABS: BUN 12 mg/dl (9-23); CHLORIDE 109 mmol/L (98-107); POTASSIUM 3.3 mmol/L (3.4-5.1)
[2025-04-10] MEDS ORDERED: Insulin Glargine, Recombinan 1 UNIT/0.01 ML SC ONE (22:55)
[2025-04-10] MEDS ORDERED: POTASSIUM CHLORIDE IN WATER 100 ML IV SCH (23:00)
[2025-04-10 23:05] LABS: BILIRUBIN Negative (Negative); BLOOD Negative (Negative); CLARITY Cloudy (Clear); COLOR Yellow (Yellow); GLUCOSE 3+ (Negative); KETONE 3+ (Negative); LEUKO ESTERASE Negative (Negative); NITRITE Negative (Negative); PH 5.5 (4.5-8.0); SPECIFIC GRAVITY 1.025 (1.001-1.030); UROBILINOGEN 0.2 E.U./dl (0.0-1.0)
[2025-04-10 23:27] LABS: BACTERIA 1+
[2025-04-10 23:28] LABS: MUCOUS 1+
[2025-04-11] VITALS: BP 97/59
[2025-04-11 00:39] LABS: BUN 12 mg/dl (9-23); CHLORIDE 110 mmol/L (98-107); POTASSIUM 3.7 mmol/L (3.4-5.1)
[2025-04-11 04:00] VITALS: BP 94/61
[2025-04-11 05:43] LABS: ALKALINE PHOSPHATASE 49 U/L (46-116); BUN 13 mg/dl (9-23); CHLORIDE 108 mmol/L (98-107); POTASSIUM 3.9 mmol/L (3.4-5.1); SGPT/ALT 15 U/L (5-49)
[2025-04-11] MEDS ORDERED: Pantoprazole Sodium 40 MG VIAL IV SCH (06:00)
[2025-04-11] MEDS ORDERED: DEXTROSE 5% SALINE 0.45% 1,000 ML IV SCH (06:00)
[2025-04-11 06:38] LABS: BASO % 0.2 % (0.0-1.0); EOS % 0.5 % (1.0-4.0); HEMATOCRIT 39.2 % (42.0-52.0); MEAN CORPUSCULAR HGB 33.4 pg (27.0-31.0); MEAN CORPUSCULAR HGB CONC 33.7 g/dl (33.0-37.0); MEAN PLATELET VOLUME 10.5 fl (9.6-12.3); MONO # 0.5 10*3/uL (0.1-1.0); MONO % 11.8 % (3.0-9.0); NEUT # 2.6 10*3/uL (2.3-7.9); NEUT % 64.3 % (47.0-73.0); PLATELET COUNT AUTOMATED 248 10*3/uL (130-400); RED BLOOD COUNT 3.95 10*6/uL (4.50-5.90); RED CELL DISTRI WIDTH 11.9 % (0-14.5); WHITE BLOOD COUNT 4.1 10*3/uL (4.8-10.8)
[2025-04-11 06:40] LABS: MEAN CELL VOLUME 99.2 fl (80.0-94.0)
[2025-04-11 08:00] VITALS: BP 100/68
[2025-04-11] MEDS ORDERED: Enoxaparin Sodium 40 MG/0.4 ML SYR SC SCH (10:00)
[2025-04-11] MEDS ORDERED: CARIPRAZINE HCL 1.5 MG CAPSULE PO SCH (10:00)
[2025-04-11 10:34] LABS: BUN 12 mg/dl (9-23); CHLORIDE 107 mmol/L (98-107); POTASSIUM 3.5 mmol/L (3.4-5.1)
[2025-04-11 12:00] VITALS: BP 101/67
[2025-04-11 14:26] LABS: BUN 12 mg/dl (9-23); CHLORIDE 108 mmol/L (98-107); POTASSIUM 3.3 mmol/L (3.4-5.1)
[2025-04-11] MEDS ORDERED: POTASSIUM CHLORIDE 20 MEQ TAB PO ONE (15:00)
[2025-04-11 16:00] VITALS: BP 110/72
[2025-04-11] MEDS ORDERED: Insulin Glargine, Recombinan 1 UNIT/0.01 ML SC SCH (16:50)
[2025-04-11 18:12] LABS: BUN 11 mg/dl (9-23); CHLORIDE 107 mmol/L (98-107); POTASSIUM 3.6 mmol/L (3.4-5.1)
[2025-04-11 20:00] VITALS: BP 107/74
[2025-04-11] MEDS ORDERED: DEXTROSE 50% 25 GM/50 ML VIAL IV PRN (21:15)
[2025-04-11] MEDS ORDERED: INSULIN LISPRO 1 UNIT/0.01 ML SQ SCH (22:00)
[2025-04-11 23:24] LABS: BUN 9 mg/dl (9-23); CHLORIDE 106 mmol/L (98-107); POTASSIUM 3.7 mmol/L (3.4-5.1)
[2025-04-12] VITALS: BP 117/75
[2025-04-12 04:00] VITALS: BP 112/70
[2025-04-12 04:25] LABS: BASO % 0.8 % (0.0-1.0); EOS # 0.1 10*3/uL (0.0-0.4); EOS % 1.6 % (1.0-4.0); HEMATOCRIT 37.3 % (42.0-52.0); MEAN CORPUSCULAR HGB 32.9 pg (27.0-31.0); MEAN CORPUSCULAR HGB CONC 34.6 g/dl (33.0-37.0); MEAN PLATELET VOLUME 9.9 fl (9.6-12.3); MONO # 0.4 10*3/uL (0.1-1.0); MONO % 10.8 % (3.0-9.0); NEUT # 1.5 10*3/uL (2.3-7.9); NEUT % 38.6 % (47.0-73.0); PLATELET COUNT AUTOMATED 213 10*3/uL (130-400); RED BLOOD COUNT 3.92 10*6/uL (4.50-5.90); RED CELL DISTRI WIDTH 11.9 % (0-14.5); WHITE BLOOD COUNT 3.8 10*3/uL (4.8-10.8)
[2025-04-12 04:39] LABS: MEAN CELL VOLUME 95.2 fl (80.0-94.0)
[2025-04-12 04:56] LABS: BUN 8 mg/dl (9-23); CHLORIDE 107 mmol/L (98-107); POTASSIUM 3.3 mmol/L (3.4-5.1)
[2025-04-12] MEDS ORDERED: POTASSIUM CHLORIDE 20 MEQ TAB PO ONE ×2 (05:15→07:35)
[2025-04-12 08:00] VITALS: BP 120/73
== END 2025-04-12 10:55 | disposition home or self-care (01) | DRG 637 ==
LOC: ED 09:14 → EDHOLD 11:15 → 5E 13:54 → ICCU 16:19
PROVIDERS: Emergency Medicine; Student in an Organized Health Care Education/Training Program; ADMIT Internal Medicine; ATTEND Internal Medicine
DX: E11.10 Type 2 diabetes mellitus with ketoacidosis without coma (principal); N17.0 Acute kidney failure with tubular necrosis; I10 Essential (primary) hypertension; R07.89 Other chest pain; R00.0 Tachycardia, unspecified; D75.89 Other specified diseases of blood and blood-forming organs; F17.290 Nicotine dependence, other tobacco product, uncomplicated; E87.6 Hypokalemia; Z88.0 Allergy status to penicillin; Z79.899 Other long term (current) drug therapy; Z79.01 Long term (current) use of anticoagulants; Z79.2 Long term (current) use of antibiotics; Z82.3 Family history of stroke; Z79.4 Long term (current) use of insulin; Z82.49 Family history of ischemic heart disease and other diseases of the circulatory system; Z82.5 Family history of asthma and other chronic lower respiratory diseases; Z80.8 Family history of malignant neoplasm of other organs or systems